=== PATIENT | male | born 1940 | race Caucasian/White ===

== ENCOUNTER 2018-06-29 14:30 | Outpatient (RCR) | payer MEDICARE, OTHER, SELFPAY | END 2018-06-29 14:40 | disposition home or self-care (01) | LOC: PT 14:30 | PROVIDERS: Visit Provider Family Medicine | DX: M51.36 Other intervertebral disc degeneration, lumbar region (principal); M54.42 Lumbago with sciatica, left side | CPT/HCPCS: 97012; 97014; 97110; 97140; 97163; G0283 ==

== ENCOUNTER 2018-06-29 15:30 | Outpatient (RCR) | payer MEDICARE, OTHER, SELFPAY | END 2018-07-27 16:05 | disposition home or self-care (01) | LOC: PT 15:30 | PROVIDERS: Visit Provider Orthopaedic Surgery Foot and Ankle Surgery | DX: S86.011D Strain of right Achilles tendon, subsequent encounter (principal); S86.012D Strain of left Achilles tendon, subsequent encounter | CPT/HCPCS: 97033; 97110; 97163; 97164 ==

== ENCOUNTER 2019-04-11 17:00 | Outpatient (RCR) | payer MEDICARE, OTHER, SELFPAY | END 2019-05-10 14:31 | disposition home or self-care (01) | LOC: PT.CARL 17:00 | PROVIDERS: Visit Provider Orthopaedic Surgery Adult Reconstructive Orthopaedic Surgery | DX: Z96.651 Presence of right artificial knee joint (principal); M25.561 Pain in right knee | CPT/HCPCS: 97014; 97110; 97116; 97140; 97163; G0283 ==